=== PATIENT | male | born 1965 | race Two or more races ===

== ENCOUNTER 2020-06-03 09:53 | Emergency (ER) | payer OTHER ==
--- NOTE | 2020-06-03 10:03 | PDOC ---
History of Present Illness - History of Present Illness Initial Comments: HPI: 55yo M with PMH of HTN, HLD presenting with abnormal right-sided facial sensation. Patient reports waking up at 5am and feeling like the right side of his face was not moving as much as the left. When he looked in the mirror, the right side of his lip did not move as much as the left. He also noticed that his right eye did not close as tightly as the left eye. Denies focal limb weakness, dysphagia, slurred speech, confusion, syncope, or fall. This has never happened before. Patient lives in [place] and denies recent outdoor recreational activities or yard work. Was able to to tolerate breakfast without any difficulties. Called his primary care physican and was instructed to present to the ED. No fevers, chills, chest pain, or shortness of breath. PCP: Dr. Joshi ROS: Constitutional: no fever, no chills HEENT: no throat pain, no dysphagia Cardiovascular: no chest pain, no palpitations Respiratory: no cough, no shortness of breath Gastrointestinal: no abdominal pain, no nausea Genitourinary: no dysuria, no hematuria Musculoskeletal: no myalgia, no arthralgia Skin: no rash, no itching Neurologic: no weakness, +abnormal facial sensation Psych: no agitation, no anxiety PE: General: Awake, alert, and fully oriented, in no acute distress Head: No signs of trauma Eyes: EOMI, sclera anicteric ENT: Moist mucus membranes Neck: Normal ROM, supple Lungs: Lungs clear, Normal breath sounds Cardio: Regular rhythm, S1 and S2 present Abdomen: Soft, nontender Extremities: Normal range of motion, Distal pulses present Skin: Warm, Dry, normal turgor Neurologic: Assymetrical smile on the right, unable to close right eye as tight ly as left eye, less tense on the right side of forehead when compared to the left side, Normal speech, sensation, strength, coordination, and gait. ED Course/MDM: DDX including but not limited to Vera's palsy, stroke, Clinically, patient's exam shows forehead involvement more consistent with fa cial nerve palsy rather than stroke Other than facial droop, no other neurologic abnormality present Will obtain basic labs and Lyme test 06/03/20 10:02 CBC WBC 7.2 K/mm3 (4.0-10.8) 06/03/20 10:35 RBC 5.19 M/mm3 (4.00-5.60) 06/03/20 10:35 Hgb 15.0 GM/dl (11.7-16.9) 06/03/20 10:35 Hct 44.6 % (35.4-49) 06/03/20 10:35 MCV 85.8 fl (80-96) 06/03/20 10:35 MCH 28.9 pg (25.7-33.7) 06/03/20 10:35 MCHC 33.6 g/dl (32.0-35.9) 06/03/20 10:35 RDW 13.3 % (11.9-15.9) 06/03/20 10:35 Plt Count 220 K/MM3 (134-434) 06/03/20 10:35 MPV 8.4 fl (7.5-11.1) 06/03/20 10:35 Absolute Neuts (auto) 4.4 K/mm3 06/03/20 10:35 Neutrophils % 59.2 % (42.8-82.8) 06/03/20 10:35 Lymphocytes % 28.4 % (8-40) 06/03/20 10:35 Monocytes % 8.7 % (3.8-10.2) 06/03/20 10:35 Eosinophils % 3.2 % (0-4.5) 06/03/20 10:35 Basophils % 0.5 % (0-2.0) 06/03/20 10:35 No leukocytosis or anemia CMP Sodium 136 mmol/L (136-145) 06/03/20 10:29 Potassium 3.7 mmol/L (3.5-5.1) 06/03/20 10:29 Chloride 101 mmol/L (98-107) 06/03/20 10:29 Carbon Dioxide 24 mmol/L (21-32) 06/03/20 10:29 Anion Gap 11 MMOL/L (8-16) 06/03/20 10:29 BUN 19.0 mg/dl (7-18) H 06/03/20 10:29 Creatinine 0.9 mg/dl (0.55-1.3) 06/03/20 10:29 Est GFR (CKD-EPI)AfAm 112.62 06/03/20 10:29 Est GFR (CKD-EPI)NonAf 97.17 06/03/20 10:29 Random Glucose 100 mg/dl (74-106) 06/03/20 10:29 Calcium 9.0 mg/dl (8.5-10) 06/03/20 10:29 Total Bilirubin 1.0 mg/dl (0.2-1) 06/03/20 10:29 AST 24 U/L (15-37) 06/03/20 10:29 ALT 27 U/L (13-61) 06/03/20 10:29 Alkaline Phosphatase 59 U/L (45-117) 06/03/20 10:29 Total Protein 7.6 g/dl (6.4-8.2) 06/03/20 10:29 Albumin 4.4 g/dl (3.4-5.0) 06/03/20 10:29 Electrolytes unremarkable Cr normal No transaminitis Lyme test is a send-out; callback request placed Prednisone and valtrex course sent to pharmacy Eye care precautions given To follow up with his primary care provider Return precautions Stable for discharge <Alisia Del Rosario - Last Filed: 06/03/20 12:26> <Kody Morrow - Last Filed: 06/08/20 17:52> - General Chief Complaint: Head/Neck problem Stated Complaint: NUMBNESS TO RIGHT UPPER FACE WHEN HE AWOKE Time Seen by Provider: 06/03/20 10:02 Past History <Alisia Del Rosario - Last Filed: 06/03/20 12:26> <Kody Morrow - Last Filed: 06/08/20 17:52> - Medical History Allergies/Adverse Reactions: Allergies Allergy/AdvReac Type Severity Reaction Status Date / Time No Known Allergies Allergy Unverified 06/03/20 10:00 Home Medications: Ambulatory Orders Atorvastatin Ca [Lipitor] 10 mg PO DAILY 06/03/20 Dextran 70/Hypromellose/Pf [Artificial Tears Drops] 1 each OD Q1H #1 bot 0 Valacyclovir HCl [Valtrex] 1,000 mg PO TID #21 tablet 06/03/20 predniSONE [Deltasone -] 60 mg PO DAILY #30 tablet 06/03/20 *Physical Exam - Vital Signs Last Vital Signs Temp Pulse Resp BP Pulse Ox 98.4 F 76 16 158/98 100 06/03/20 10:00 06/03/20 11:49 06/03/20 11:49 06/03/20 11:49 06/03/20 11:49 <Kody Morrow - Last Filed: 06/08/20 17:52> ED Treatment Course - LABORATORY CBC & Chemistry Diagram: 06/03/20 10:35 06/03/20 10:29 <Alisia Del Rosario - Last Filed: 06/03/20 12:26> - LABORATORY CBC & Chemistry Diagram: 06/03/20 10:35 06/03/20 10:29 - ADDITIONAL ORDERS Additional order review: Laboratory Results 06/03/20 10:29 Sodium 136 Potassium 3.7 Chloride 101 Carbon Dioxide 24 Anion Gap 11 BUN 19.0 H Creatinine 0.9 Est GFR (CKD-EPI)AfAm 112.62 Est GFR (CKD-EPI)NonAf 97.17 Random Glucose 100 Calcium 9.0 Total Bilirubin 1.0 AST 24 ALT 27 Alkaline Phosphatase 59 Total Protein 7.6 Albumin 4.4 06/03/20 10:35 RBC 5.19 MCV 85.8 MCHC 33.6 RDW 13.3 MPV 8.4 Neutrophils % 59.2 Lymphocytes % 28.4 Monocytes % 8.7 Eosinophils % 3.2 Basophils % 0.5 <Kody Morrow - Last Filed: 06/08/20 17:52> Discharge - Discharge Information Problems reviewed: Yes <Alisia Del Rosario - Last Filed: 06/03/20 12:26> - Discharge Information Problems reviewed: Yes <Kody Morrow - Last Filed: 06/08/20 17:52> - Discharge Information Clinical Impression/Diagnosis: Vera's palsy Condition: Stable Disposition: HOME - Additional Discharge Information Prescriptions: Dextran 70/Hypromellose/Pf [Artificial Tears Drops] 1 each OD Q1H #1 bot predniSONE [Deltasone -] 60 mg PO DAILY #30 tablet Valacyclovir HCl [Valtrex] 1,000 mg PO TID #21 tablet - Follow up/Referral Referrals: Vivek Joshi MD [Primary Care Provider] - CallBack Reminder: lyme test - Patient Discharge Instructions Patient Printed Discharge Instructions: DI for Vera's Palsy Additional Instructions: You came into the emergency department after feeling an abnormal sensation on the right side of your face. Lab work did not indicate acute pathology. You were tested for Lyme disease. This test takes about one week to result. You will be called with the result. Prescriptions sent to your pharmacy. Take as instructed. Use your eye drops every hour. When you sleep, tape your affected eye shut to prevent drying/irritation/injury. Continue taking home medications as prescribed by your physician. Follow up with your primary care physician within 72 hours. Call and make an appointment to further evaluate your weakness. Your workup is not complete until you do so. Immediate medical attention is required if you have: any chest pain, palpitations, shortness of breath, severe headaches, changes in vision, episodes of fainting, worsening focal numbness or weakness, any severe abdominal pain, any black tarry stool, or any new or concerning symptoms. If you think you are having an emergency, call for emergency medical services or present to the emergency department right away. - Post Discharge Activity
--- NOTE | 2020-06-03 10:28 | PDOC ---
Attending Attestation - Resident Resident Name: Alisia Del Rosario - ED Attending Attestation I have performed the following: I have examined & evaluated the patient, The case was reviewed & discussed with the resident, I agree w/resident's findings & plan, Exceptions are as noted - HPI HPI: 06/03/20 10:38 55y M hx of htn, hl, presents with facial assymetry and inability to close his eye. Pt was feeling fine yesterday, this morning, he woke up and noted facial assymetry when brushing his teeth. He notse a mild tingling sensation on his R cheek. he denies any recent illnesses/fever/chills, headache, hearing changes, rashes, recent sick contacts. exam: GENERAL: The patient is awake, alert, and fully oriented, Nontoxic - in no acute distress. HEAD: Normocephalic, atraumatic. EYES: extraocular movements intact, sclera anicteric, conjunctiva clear. ENT: Normal voice, Moist mucous membranes. NECK: Normal range of motion, supple LUNGS: Breath sounds equal, clear to auscultation bilaterally. No wheezes, no rhonchi, no rales. HEART: Regular rate and rhythm, normal S1 and S2 without murmur, rub or gallop. ABDOMEN: Soft, nontender, No guarding, no rebound. No CVA tenderness EXTREMITIES: Normal range of motion, no edema. NEUROLOGICAL: R facial weakness (V1-V3), rest of CN intact, Normal speech, spontanous and symemtric movement of UE/LE, sensation intact throughout, decreased taste to sugar on anterior 2/3rd of R tongue. PSYCH: Normal mood, normal affect. SKIN: Warm, Dry, normal turgor, bells palsy - moderately severe weakness will treat with prednisone and valtrex eye precautiosn given - Physicial Exam PE: 06/03/20 12:00 see above - Medical Decision Making 06/03/20 12:00 see above Discharge - Discharge Information Problems reviewed: Yes Clinical Impression/Diagnosis: Vera's palsy Condition: Stable Disposition: HOME - Additional Discharge Information Prescriptions: Dextran 70/Hypromellose/Pf [Artificial Tears Drops] 1 each OD Q1H #1 bot predniSONE [Deltasone -] 60 mg PO DAILY #30 tablet Valacyclovir HCl [Valtrex] 1,000 mg PO TID #21 tablet - Follow up/Referral Referrals: Vivek Joshi MD [Primary Care Provider] - CallBack Reminder: lyme test - Patient Discharge Instructions Patient Printed Discharge Instructions: DI for Vera's Palsy Additional Instructions: You came into the emergency department after feeling an abnormal sensation on the right side of your face. Lab work did not indicate acute pathology. You were tested for Lyme disease. This test takes about one week to result. You will be called with the result. Prescriptions sent to your pharmacy. Take as instructed. Use your eye drops every hour. When you sleep, tape your affected eye shut to prevent drying/irritation/injury. Continue taking home medications as prescribed by your physician. Follow up with your primary care physician within 72 hours. Call and make an appointment to further evaluate your weakness. Your workup is not complete until you do so. Immediate medical attention is required if you have: any chest pain, palpitat ions, shortness of breath, severe headaches, changes in vision, episodes of fainting, worsening focal numbness or weakness, any severe abdominal pain, any black tarry stool, or any new or concerning symptoms. If you think you are having an emergency, call for emergency medical services or present to the emergency department right away. - Post Discharge Activity
[2020-06-03 10:36] VITALS: TEMP 98.4; BMI 25.4
[2020-06-03 10:48] LABS: BASO % 0.5 % (0-2.0); EOS % 3.2 % (0-4.5); HEMATOCRIT 44.6 % (35.4-49); LYMPH % 28.4 % (8-40); MCH 28.9 pg (25.7-33.7); MCHC 33.6 g/dl (32.0-35.9); MEAN CELL VOLUME 85.8 fl (80-96); MEAN PLT VOLUME 8.4 fl (7.5-11.1); MONO % 8.7 % (3.8-10.2); NEUT % 59.2 % (42.8-82.8); PLATELET COUNT 220 K/MM3 (134-434); RBC 5.19 M/mm3 (4.00-5.60); RDW 13.3 % (11.9-15.9); WHITE BLOOD COUNT 7.2 K/mm3 (4.0-10.8)
[2020-06-03 11:04] LABS: ALBUMIN 4.4 g/dl (3.4-5.0); CREATININE 0.9 mg/dl (0.55-1.3); POTASSIUM 3.7 mmol/L (3.5-5.1); TOT PROT 7.6 g/dl (6.4-8.2)
[2020-06-03 11:54] VITALS: BP 158/98; PULSE 76
== END 2020-06-03 11:54 | disposition home or self-care (01) ==
LOC: FER 09:53
DX: G51.0 Bell's palsy (principal)
CPT/HCPCS: 36415; 80053; 85025; 86618; 99283-25

== ENCOUNTER 2022-08-01 12:05 | Emergency (ER) | payer OTHER ==
[2022-08-01 12:22] VITALS: PULSE 86; RESP 16; TEMP 98.1; BMI 26.4
[2022-08-01] MEDS ORDERED: NAPROXEN 375 MG TABLET PO ONE (13:24)
[2022-08-01] MEDS ORDERED: NAPROXEN 375 MG TABLET ONE (13:26)
[2022-08-01 13:36] VITALS: BP 137/86
== END 2022-08-01 13:35 | disposition home or self-care (01) ==
LOC: FER 12:05
DX: S80.02XA Contusion of left knee, initial encounter (principal); W01.0XXA Fall on same level from slipping, tripping and stumbling without subsequent striking against object, initial encounter
CPT/HCPCS: 73562-TC-LT-FY; 99283-25